=== PATIENT | female | born 2000 | race Caucasian/White ===

== ENCOUNTER 2024-11-24 18:56 | Emergency (ER) | payer OTHER ==
[~2024-11-24] VITALS: Ht 160 cm; Wt 69.4 kg
[2024-11-24] MEDS ORDERED: Ketorolac Tromethamine 15mg Vial IM ONE (19:10)
[2024-11-24] MEDS ORDERED: AMOCLA875 PO (20:42)
== END 2024-11-24 20:56 | disposition home or self-care (01) ==
LOC: ER 18:56
DX: S51.851A Open bite of right forearm, initial encounter (principal); Z79.899 Other long term (current) drug therapy; W54.0XXA Bitten by dog, initial encounter
CPT/HCPCS: 12002; 73090; 90471; 90715; 96372; 99283-25; A9270; J1885